=== PATIENT | female | born 1970 | race African-American/Black ===

== ENCOUNTER 2017-06-21 19:33 | Emergency (ER) | payer SELFPAY ==
[2017-06-21] MEDS ORDERED: Aspirin 81 MG Tab.Chew PO ONE (20:13)
[2017-06-21] MEDS ORDERED: Albuterol/Ipratropium 3.0-0.5 MG/3 ML Neb Soln NEB ONE (20:13)
--- NOTE | 2017-06-21 20:13 | EDM.PDOC ---
ED HPI GENERAL MEDICAL PROBLEM - General Chief Complaint: Chest Pain Stated Complaint: COUGH/CONGESTION CHEST TIGHTNESS Time Seen by Provider: 06/21/17 20:07 Source of Information: Reports: Patient History Limitations: Reports: No Limitations - History of Present Illness INITIAL COMMENTS - FREE TEXT/NARRATIVE: HISTORY AND PHYSICAL: History of present illness: Patient is a 47-year-old female who presents to the emergency room with complaints of cough, shortness of breath, chest pressure 3 days. She is an OR nurse at our facility and had a provider Gracia her prescription for the azithromycin. She states that she she had the flu or bronchitis initially, but is now concerned she may have a pneumonia. She denies any fever, chills, abdominal pain, nausea, vomiting or diarrhea. Patient has a past medical history of hypertension which she takes Norvasc daily. States she has been taking [id number] Mucinex. Review of systems: As per history of present illness and below otherwise all systems reviewed and negative. Past medical history: As per history of present illness and as reviewed below otherwise noncontributory. Surgical history: As per history of present illness and as reviewed below otherwise noncontributory. Social history: No reported history of drug or alcohol abuse. Family history: As per history of present illness and as reviewed below otherwise noncontributory. Physical exam: HEENT: Atraumatic, normocephalic, pupils reactive, negative for conjunctival pallor or scleral icterus, mucous membranes moist, throat clear, neck supple, nontender, trachea midline. Lungs: Posterior base is diminished otherwise breath sounds equal bilaterally, chest nontender. No cough noted at this time. Heart: S1S2, regular rate and rhythm Abdomen: Soft, nondistended, nontender. Negative for masses or hepatosplenomegaly. Negative for costovertebral tenderness. Pelvis: Stable nontender. Genitourinary: Deferred. Rectal: Deferred. Extremities: Atraumatic, moves all extremities per self with full range of motion without difficulty, negative for cords or calf pain. Neurovascular unremarkable. Neuro: Awake, alert, oriented. Cranial nerves II through XII unremarkable. Cerebellum unremarkable. Motor and sensory unremarkable throughout. Exam nonfocal. Due to the complaint of "chest pain" along with a cough and shortness of breath I did ask the patient if I could do lab work at this time to rule out any cardiac issues. She is agreeable at this time. Will do routine lab work, chest x -ray and a duo neb. Patient's blood pressure is elevated. She attributes this to having taken several doses of Mucinex hkhj-jga-aoxtoyn. She reports normally it is well managed with her Norvasc. The pressures currently 159/88. She states she feels somewhat improved after receiving her nebulizer treatment. Labs have returned all are relatively normal , with the exception of a potassium of 2.9. I will give her 20 mEq of K Dur and have her follow-up with this lab value with her primary care provider. Chest x- ray shows Diagnostics: CBC, CMP, troponin, 2 view chest x-ray, EKG Therapeutics: Aspirin, DuoNeb KDur, Solumedrol Impression: Bronchitis Plan: 1. Earlier you were given azithromycin, which she had filled. Please take this medication as prescribed. A prescription for Medrol Dosepak and pro-air inhaler has been given to you, please fill and take as directed. 2. Please stop taking the Mucinex [id number]. The only tqcf-xrj-ebthcjr cold medication found to not raise blood pressure is Coricidin, which is over the counter. 3. Follow-up with your primary caregiver in the next 1-2 days. Return to the ED as needed and as discussed. Definitive disposition and diagnosis as appropriate pending reevaluation and review of above. Duration: Day(s): Location: Reports: Chest chest Pain Score (Numeric/FACES): 8 - Related Data Allergies Allergy/AdvReac Type Severity Reaction Status Date / Time No Known Allergies Allergy Verified 06/21/17 19:37 Home Meds: Home Meds amLODIPine [Norvasc] 10 mg PO DAILY 06/21/17 [History] Past Medical History - Past Health History Medical/Surgical History: Denies Medical/Surgical History Cardiovascular History: Reports: Hypertension Social & Family History - Family History Family Medical History: Noncontributory - Tobacco Use Smoking Status *Q: Never Smoker - Recreational Drug Use Recreational Drug Use: No ED ROS GENERAL - Review of Systems Review Of Systems: ROS reveals no pertinent complaints other than HPI. ED EXAM, GENERAL - Physical Exam Exam: See Below (See dictation) Course - Vital Signs Last Recorded V/S: Last Vital Signs Temp 98.4 F 06/21/17 19:33 Pulse 78 06/21/17 21:15 Resp 16 06/21/17 20:05 BP 150/88 H 06/21/17 21:15 Pulse Ox 96 06/21/17 21:15 - Orders/Labs/Meds Orders: Active Orders 24 hr Category Date Time Status EKG Documentation Completion [RC] STAT Care 06/21/17 19:44 Active RT Aerosol Therapy [RC] ASDIRECTED Care 06/21/17 20:13 Active Chest 2V [CR] Stat Exams 06/21/17 20:09 Taken Labs: Laboratory Tests 06/21/17 06/21/17 Range/Units 20:29 20:29 WBC 5.42 (4.0-11.0) K/uL RBC 4.83 (4.30-5.90) M/uL Hgb 13.2 (12.0-16.0) g/dL Hct 39.2 (36.0-46.0) % MCV 81.2 (80.0-98.0) fL MCH 27.3 (27.0-32.0) pg MCHC 33.7 (31.0-37.0) g/dL RDW Std Deviation 41.2 (28.0-62.0) fl RDW Coeff of Neela 14 (11.0-15.0) % Plt Count 172 (150-400) K/uL MPV 12.00 (7.40-12.00) fL Neut % (Auto) 56.2 (48.0-80.0) % Lymph % (Auto) 38.6 (16.0-40.0) % [place] % (Auto) 4.4 (0.0-15.0) % Eos % (Auto) 0.6 (0.0-7.0) % Baso % (Auto) 0.2 (0.0-1.5) % Neut # (Auto) 3.1 (1.4-5.7) K/uL Lymph # (Auto) 2.1 (0.6-2.4) K/uL [place] # (Auto) 0.2 (0.0-0.8) K/uL Eos # (Auto) 0.0 (0.0-0.7) K/uL Baso # (Auto) 0.0 (0.0-0.1) K/uL Nucleated RBC % 0.0 /100WBC Nucleated RBCs # 0 K/uL Sodium 141 (136-146) mmol/L Potassium 2.9 L (3.5-5.1) mmol/L Chloride 106 (98-110) mmol/L Carbon Dioxide 25 (21-31) mmol/L BUN 7 (6.0-23.0) mg/dL Creatinine 0.8 (0.6-1.5) mg/dL Est Cr Clr Drug Dosing TNP Estimated GFR (MDRD) > 60.0 ml/min Glucose 120 H (60-110) mg/dL Calcium 9.1 (8.8-10.8) mg/dL Total Bilirubin 0.5 (0.1-1.5) mg/dL AST 17 (5-40) IU/L ALT 14 (8-54) IU/L Alkaline Phosphatase 86 (40-150) Troponin I < 0.10 (0.0-0.29) NG/ML Total Protein 7.8 (6.0-8.0) g/dL Albumin 4.4 (3.5-5.0) g/dL Globulin 3.4 (2.0-3.5) g/dL Albumin/Globulin Ratio 1.3 (1.3-2.8) Meds: Medications Discontinued Medications Generic Name Dose Route Start Last Admin Trade Name Freq PRN Reason Stop Dose Admin Albuterol/Ipratropium 3 ml 06/21/17 20:13 06/21/17 20:53 Duoneb 3.0-0.5 Mg/3 Ml NEB 06/21/17 20:14 3 ml ONETIME ONE Administration Aspirin 324 mg 06/21/17 20:13 06/21/17 20:46 Aspirin PO 06/21/17 20:14 324 mg ONETIME ONE Administration Methylprednisolone Sodium Succinate 125 mg 06/21/17 21:47 Solu-Medrol IM 06/21/17 21:48 ONETIME ONE Potassium Chloride 20 meq 06/21/17 21:30 Klor-Con M20 PO 06/21/17 21:31 ONETIME ONE Departure - Departure Time of Disposition: 21:43 Disposition: Home, Self-Care 01 Clinical Impression: Bronchitis Referrals: PCP,None [Primary Care Provider] - Forms: ED Department Discharge Additional Instructions: My general discharge The following information is given to patients seen in the emergency department who are being discharged to home. This information is to outline your options for follow-up care. We provide all patients seen in our emergency department with a follow-up referral. The need for follow-up, as well as the timing and circumstances, are variable depending upon the specifics of your emergency department visit. If you don't have a primary care physician on staff, we will provide you with a referral. We always advise you to contact your personal physician following an emergency department visit to inform them of the circumstance of the visit and for follow-up with them and/or the need for any referrals to a consulting specialist. The emergency department will also refer you to a specialist when appropriate. This referral assures that you have the opportunity for follow-up care with a specialist. All of these measure are taken in an effort to provide you with optimal care, which includes your follow-up. Under all circumstances we always encourage you to contact your private physician who remains a resource for coordinating your care. When calling for follow-up care, please make the office aware that this follow-up is from your recent emergency room visit. If for any reason you are refused follow-up, please contact the [facility] Emergency Department at and asked to speak to the emergency department charge nurse. [facility] Primary [facility] [address] [place] [id number] 1. Earlier you were given azithromycin, which she had filled. Please take this medication as prescribed. A prescription for Medrol Dosepak and pro-air inhaler has been given to you, please fill and take as directed. 2. Please stop taking the Mucinex [id number]. The only ltkv-twe-kjlewre cold medication found to not raise blood pressure is Coricidin, which is over the counter. 3. Follow-up with your primary caregiver in the next 1-2 days. Return to the ED as needed and as discussed. - My Orders Last 24 Hours: My Active Orders 06/21/17 20:09 Chest 2V [CR] Stat 06/21/17 20:13 RT Aerosol Therapy [RC] ASDIRECTED - Assessment/Plan Last 24 Hours: My Active Orders 06/21/17 20:09 Chest 2V [CR] Stat 06/21/17 20:13 RT Aerosol Therapy [RC] ASDIRECTED
[2017-06-21 20:56] LABS: CHLORIDE,CL 106 mmol/L (98-110); SODIUM,NA 141 mmol/L (136-146)
[2017-06-21] MEDS ORDERED: Potassium Chloride 20 MEQ Tab.ER PO ONE (21:30)
[2017-06-21] MEDS ORDERED: methylPREDNISolone Sodium Succinate 125 MG/2 ML SDV IM ONE (21:47)
--- NOTE | 2017-06-22 15:43 | CR ---
EXAM DATE: 06/21/17 PATIENT'S AGE: 47 [facility] Facility: [place], [place] Site . Site : 1970 Study: XRay Chest [id number] 9:13:57 PM Ordering Physician: Doctor Christopher Final Report: HISTORY: Cough. FINDINGS: PA and lateral chest radiographs demonstrate a normal cardiac silhouette. Pulmonary vasculature and radha are normal. No lobar consolidation or pleural effusion is seen. The bony structures are normal for age. IMPRESSION: No acute cardiopulmonary disease or infiltrate. Dictated by Vicenta Lynch MD @ 06/21/2017 9:48:59 PM Dictated by: Vicenta Lynch MD @ 06/21/2017 21:49:05 (Electronic Signature) Report Signed by Proxy. [employer]
== END 2017-06-21 22:30 | disposition home or self-care (01) ==
LOC: MW.ED 19:33
DX: J40 Bronchitis, not specified as acute or chronic (principal); I10 Essential (primary) hypertension
CPT/HCPCS: 36415; 71020; 80053; 84484; 85025; 94640; 96372; 99285; A9270; J2930; 93005; 99284

== ENCOUNTER 2017-08-22 17:00 | Emergency (ER) | payer SELFPAY ==
--- NOTE | 2017-08-22 17:14 | EDM.PDOC ---
ED HPI GENERAL MEDICAL PROBLEM - General Stated Complaint: CHEST PAIN Time Seen by Provider: 08/22/17 17:14 Source of Information: Reports: Patient History Limitations: Reports: No Limitations - History of Present Illness INITIAL COMMENTS - FREE TEXT/NARRATIVE: HISTORY AND PHYSICAL: [] 47-year-old female presenting with cold-like symptoms she has been [facility] History of Present Illness: []She had some bronchitis given a Z-Noe She had a UTI was given antibiotics without She has a abscess the right side of her mouth was given antibiotics for that Review of Systems: As per history of present illness and below otherwise all systems reviewed and negative. Past medical history: As per history of present illness and as reviewed below otherwise noncontributory. Surgical history: As per history of present illness and as reviewed below otherwise noncontributory. Social history: No reported history of drug or alcohol abuse. Family history: As per history of present illness and as reviewed below otherwise noncontributory. Physical exam: Very pleasant woman who is teary-eyed she's been sick for 3 weeks. Answering questions appropriately HEENT: Atraumatic, normocehpalic, pupils reactive, negative for conjunctival pallor or scleral icterus, mucous membranes moist, throat clear, neck supple, nontender, trachea midline. Lungs: Clear to auscultation, breath sounds equal bilaterally, chest non tender. Heart: S1S2, regular, negative for clicks, rubs, or JVD. Abdomen: Soft, nondistended, nontender. Negative for masses or hepatossplenmegaly. Negative for costovertebral tenderness. Pelvis: Stable nontender. Genitourinary: Deferred. Rectal: Deferred Extremities: Atraumatic, negative for cords or calf pain. Neurovascular unremarkable. Neuro: Awake, alert, oriented. Cranial nerves II through XII unremarkable. Cerebellum unremarkable. Motor and sensory unremarkable throughout. Exam nonfocal. Discussed with the patient the diagnosis of trichomonas and dental abscess and the treatments for these are different Diagnostics: [CBC CMP EKG chest x-ray UA] Therapeutics: [Augmentin 875 by mouth Flagyl 250 mg by mouth] Impression: [#1 Trichomonas #2 dental abscess] Plan: []Discharged to home Prescription has been written for both of these antibiotics that she may fill tomorrow pharmacy of choice Definitive disposition and diagnosis as appropriate pending reevaluation and review of above. Onset: Gradual Duration: Week(s):, Getting Worse Location: Reports: Head, Chest Chest Pain Score (Numeric/FACES): 8 - Related Data Allergies Allergy/AdvReac Type Severity Reaction Status Date / Time No Known Allergies Allergy Verified 06/21/17 19:37 Home Meds: Home Meds amLODIPine [Norvasc] 10 mg PO DAILY 06/21/17 [History] Past Medical History - Past Health History Medical/Surgical History: Denies Medical/Surgical History Cardiovascular History: Reports: Hypertension Social & Family History - Family History Family Medical History: Noncontributory - Tobacco Use Smoking Status *Q: Never Smoker - Recreational Drug Use Recreational Drug Use: No ED ROS GENERAL - Review of Systems Review Of Systems: ROS reveals no pertinent complaints other than HPI. ED EXAM, GENERAL - Physical Exam Exam: See Below (See dictation) Course - Vital Signs Last Recorded V/S: Last Vital Signs Temp 37.1 C 08/22/17 17:58 Pulse 78 08/22/17 17:58 Resp 20 08/22/17 17:58 BP 137/89 08/22/17 17:58 Pulse Ox 100 08/22/17 17:58 - Orders/Labs/Meds Orders: Active Orders 24 hr Category Date Time Status Chest 2V [CR] Stat Exams 08/22/17 17:21 Taken Labs: Laboratory Tests 08/22/17 08/22/17 08/22/17 Range/Units 17:45 17:55 17:55 WBC 6.55 (4.0-11.0) K/uL RBC 4.74 (4.30-5.90) M/uL Hgb 13.0 (12.0-16.0) g/dL Hct 38.1 (36.0-46.0) % MCV 80.4 (80.0-98.0) fL MCH 27.4 (27.0-32.0) pg MCHC 34.1 (31.0-37.0) g/dL RDW Std Deviation 41.6 (28.0-62.0) fl RDW Coeff of Neela 14 (11.0-15.0) % Plt Count 191 (150-400) K/uL MPV 11.20 (7.40-12.00) fL Neut % (Auto) 60.9 (48.0-80.0) % Lymph % (Auto) 32.4 (16.0-40.0) % [place] % (Auto) 5.8 (0.0-15.0) % Eos % (Auto) 0.6 (0.0-7.0) % Baso % (Auto) 0.3 (0.0-1.5) % Neut # (Auto) 4.0 (1.4-5.7) K/uL Lymph # (Auto) 2.1 (0.6-2.4) K/uL [place] # (Auto) 0.4 (0.0-0.8) K/uL Eos # (Auto) 0.0 (0.0-0.7) K/uL Baso # (Auto) 0.0 (0.0-0.1) K/uL Nucleated RBC % 0.0 /100WBC Nucleated RBCs # 0 K/uL Sodium 141 (136-146) mmol/L Potassium 2.6 L (3.5-5.1) mmol/L Chloride 104 (98-110) mmol/L Carbon Dioxide 27 (21-31) mmol/L BUN 10 (6.0-23.0) mg/dL Creatinine 0.8 (0.6-1.5) mg/dL Est Cr Clr Drug Dosing TNP Estimated GFR (MDRD) > 60.0 ml/min Glucose 107 (60-110) mg/dL Calcium 9.7 (8.8-10.8) mg/dL Total Bilirubin 0.4 (0.1-1.5) mg/dL AST 22 (5-40) IU/L ALT 20 (8-54) IU/L Alkaline Phosphatase 83 (40-150) Total Protein 7.6 (6.0-8.0) g/dL Albumin 4.6 (3.5-5.0) g/dL Globulin 3.0 (2.0-3.5) g/dL Albumin/Globulin Ratio 1.5 (1.3-2.8) Urine Color YELLOW Urine Appearance CLEAR Urine pH 6.0 (5.0-8.0) Ur Specific [place] 1.025 (1.001-1.035) Urine Protein NEGATIVE (NEGATIVE) mg/dL Urine Glucose (UA) NEGATIVE (NEGATIVE) mg/dL Urine Ketones TRACE H (NEGATIVE) mg/dL Urine Occult Blood MODERATE (NEGATIVE) Urine Nitrite NEGATIVE (NEGATIVE) Urine Bilirubin NEGATIVE (NEGATIVE) Urine Urobilinogen 0.2 (<2.0) EU/dL Ur Leukocyte Esterase SMALL (NEGATIVE) Urine RBC 2-4 (0-2/HPF) Urine WBC 2-5 (0-5/HPF) Ur Epithelial Cells FEW (NONE-FEW) Urine Bacteria 1+ H (NEGATIVE) Hyaline Casts 2-3 (0-2/LPF) Urine Mucus MODERATE (NONE-MOD) Urine Trichomonas PRESENT (NEGATIVE) Meds: Medications Discontinued Medications Generic Name Dose Route Start Last Admin Trade Name Freq PRN Reason Stop Dose Admin Amoxicillin/Clavulanate Potassium 1 tab 08/22/17 18:40 Augmentin 875 Mg/125 Mg PO 08/22/17 18:41 ONETIME ONE Metronidazole 250 mg 08/22/17 18:40 Metronidazole PO 08/22/17 18:41 ONETIME ONE Departure - Departure Time of Disposition: 18:43 Disposition: Home, Self-Care 01 Condition: Good Clinical Impression: Trichomonas contact, Dental abscess - Discharge Information Instructions: Dental Abscess Additional Instructions: The following information is given to patients seen in the emergency department who are being discharged to home. This information is to outline your options for follow-up care. We provide all patients seen in our emergency department with a follow-up referral. The need for follow-up, as well as the timing and circumstances, are variable depending upon the specifics of your emergency department visit. If you don't have a primary care physician on staff, we will provide you with a referral. We always advise you to contact your personal physician following an emergency department visit to inform them of the circumstance of the visit and for follow-up with them and/or the need for any referrals to a consulting specialist. The emergency department will also refer you to a specialist when appropriate. This referral assures that you have the opportunity for followup care with a specialist. All of these measure are taken in an effort to provide you with optimal care, which includes your followup. Under all circumstances we always encourage you to contact your private physician who remains a resource for coordinating your care. When calling for followup care, please make the office aware that this follow-up is from your recent emergency room visit. If for any reason you are refused follow-up, please contact the [facility] emergency department at and asked to speak to the emergency department charge nurse. We've been found to have STD caused by a protozoan bacteria Prescription has been written for Flagyl 250 mg one 3 times a day for 10 days You have a dental abscess on the left upper mouth area Prescription written for Augmentin 875 mg one twice daily for 7 days He will need to follow-up with your dentist at home He will need to follow-up with your primary care provider to ensure that the trichomonas section has been resolved Avoid any sexual contact until you are sure that this infection has cleared - My Orders Last 24 Hours: My Active Orders 08/22/17 17:21 Chest 2V [CR] Stat - Assessment/Plan Last 24 Hours: My Active Orders 08/22/17 17:21 Chest 2V [CR] Stat
[2017-08-22 18:26] LABS: CHLORIDE,CL 104 mmol/L (98-110); SODIUM,NA 141 mmol/L (136-146)
[2017-08-22] MEDS ORDERED: Amoxicillin/Clavulanate K 875-125 MG Tab PO ONE (18:40)
[2017-08-22] MEDS ORDERED: metroNIDAZOLE 250 MG Tab PO ONE (18:40)
--- NOTE | 2017-08-23 18:46 | CR ---
EXAM DATE: 08/22/17 PATIENT'S AGE: 47 [facility] Facility: [place], [place] Site . Site : 1970 Study: XRay Chest [id number] 6:12:29 PM Ordering Physician: Doctor Christopher Final Report: INDICATION: chest pain TECHNIQUE: Chest 2 views COMPARISON: June 21, 2017 FINDINGS: Cardiovascular and mediastinum: Heart size and vasculature are normal in caliber and appearance. Mediastinum is within normal limits. Lungs and pleural spaces: No focal consolidation. No sign of pleural effusion. No pneumothorax. Bones and soft tissues: No significant findings. IMPRESSION: No acute cardiopulmonary disease Dictated by Richie Root MD @ 08/22/2017 6:31:17 PM Dictated by: Richie Root MD @ 08/22/2017 18:31:23 (Electronic Signature) Report Signed by Proxy. TABATHA
== END 2017-08-22 19:01 | disposition home or self-care (01) ==
LOC: MW.ED 17:00
DX: K04.7 Periapical abscess without sinus (principal); A59.9 Trichomoniasis, unspecified; I10 Essential (primary) hypertension; Z79.899 Other long term (current) drug therapy
CPT/HCPCS: 36415; 71046; 80053; 81001; 85025; 93005; 99284; A9270; 99283